=== PATIENT | female | born 1985 | race Hispanic/Latino ===

== ENCOUNTER 2024-02-10 15:04 | Emergency (ER) | payer OTHER ==
[~2024-02-10] VITALS: Ht 160 cm; Wt 65.3 kg
[2024-02-10 16:02] VITALS: PULSE 80; RESP 16; TEMP 100.1; O2SAT 100
[2024-02-10] MEDS: ACETAMINOPHEN 325 MG TAB PO ONE (17:24)
[2024-02-10] MEDS: TETANUS/DIPHTHERIA TOX ADULT 0.5 ML SYR IM ONE (17:26)
== END 2024-02-10 18:49 | disposition home or self-care (01) ==
LOC: ER 15:34
DX: M25.511 Pain in right shoulder (principal); S00.83XA Contusion of other part of head, initial encounter; S50.311A Abrasion of right elbow, initial encounter; S20.111A Abrasion of breast, right breast, initial encounter; S60.512A Abrasion of left hand, initial encounter; S60.511A Abrasion of right hand, initial encounter; S80.212A Abrasion, left knee, initial encounter; S80.211A Abrasion, right knee, initial encounter; S30.811A Abrasion of abdominal wall, initial encounter; S70.311A Abrasion, right thigh, initial encounter; I45.2 Bifascicular block; Z23 Encounter for immunization; Y04.0XXA Assault by unarmed brawl or fight, initial encounter; Y07.010 Husband, current, perpetrator of maltreatment and neglect; Y92.009 Unspecified place in unspecified non-institutional (private) residence as the place of occurrence of the external cause
CPT/HCPCS: 73030; 90714; 99282; U0002; 90471